=== PATIENT | male | born 2005 | race Hispanic/Latino ===

== ENCOUNTER 2025-01-24 20:53 | Emergency (ER) | payer SELFPAY ==
[2025-01-24 20:56] VITALS: BP 143/93
[2025-01-24 21:28] LABS: COVID-19 Antigen Negative (Negative)
[2025-01-24] MEDS: DECADRON 10 MG PO (22:35)
[2025-01-24] MEDS: DUONEB 3 ML INH (22:36)
[2025-01-24 22:38] VITALS: BP 115/68
--- NOTE | 2025-01-24 23:22 | ED.GENMED ---
History of Present Illness
General
Chief Complaint: Cough
Source: patient
Exam Limitations: none
Time Seen by Provider: 01/24/25 22:22
Nursing documentation reviewed up to this point in time: agreed with
History of Present Illness
History of Present Illness:
Patient to ED wt complaint of cough, SOB. Symptoms started a few days ago. Denies fever/chills Brought to ED by family for eval.
Past History
Past History
ED Past Medical History: Asthma
ED Past Surgical History: None
Review of Systems
Review of Systems
Allergies reviewed?: Yes
All Other Systems: ROS reviewed and negative except as documented in HPI and ROS
Constitutional: Reports no symptoms
EENT: Reports no symptoms
Respiratory: Reports cough and trouble breathing
Cardiac: Reports no symptoms
ABD/GI: Reports no symptoms
: Reports no symptoms
Musculoskeletal: Reports no symptoms
Skin: Reports no symptoms
Neurological: Reports no symptoms
Psychiatric: Reports no symptoms
Phy Exam
General Physical Exam
General Presentation: well appearing and no apparent distress
General age: appears stated age
General Skin: warm and dry
General Habitus: normal
General Mental: alert
Cardiovascular Exam
Cardiovascular Exam: regular rate/rhythm and no edema
Pulmonary Exam
Pulmonary Exam: chest non tender and generalized wheezing
Oxygen Status: room air
Cough: coarse cough
Musculoskeletal Exam
Musculoskeletal Exam: full ROM and neuro vasc intact
Skin Exam
Skin Exam: normal color, warm/dry and no rash
Psychiatric Exam
Psychiatric Exam: normal mood/affect
Course
Orders/Labs/Results
Orders:
Orders
01/24/25 20:59
CR Chest - 2 Views Urgent
Comment:
Reason For Exam: SOB
01/24/25 21:01
COVID-19 Antigen Urgent
Source: Nasal Swab
Influenza A+B Rapid Molecular Urgent
TAMI Source: Nasal Swab
Specimen Description:
01/24/25 22:26
Dexamethasone Pf [Decadron] 10 mg PO NOW STA
Ipratropium/Albuterol Sulfate [Duoneb] 3 ml INH R NOW STA
Vital Signs
Initial and Last Documented VS:
Initial Vital Signs
Temp Pulse Resp BP Pulse Ox
98.1 F 82 18 143/93 94
01/24/25 20:56 01/24/25 20:56 01/24/25 20:56 01/24/25 20:56 01/24/25 20:56
Last Documented Vital Signs
Temp Pulse Resp BP Pulse Ox
98.1 F 77 20 115/68 96
01/24/25 20:56 01/24/25 22:38 01/24/25 22:38 01/24/25 22:38 01/24/25 22:38
*Radiology
Radiology exam reviewed: radiology read reviewed
*Pulse Oximetry
Patient hypoxic: no
*Critical Care Note
Total Time (30-74mins, 75-104mins- exclusive of procedures): Not Applicable
Update Note
Update Note:
Patient to ED with complaint of cough and SOB. CXR neg for pneumonia. Generalized expiratory wheezing noted on exam. He was given 10mg decadron and duoneb in ED. WHeezing resolved. Pulse ox remains 98% RA. WIll discharge home with rx for
prednisone 40mg daily x 4 days, albutrol MDI prn. Given instructions on s/s to return to ED and he is agreeable to plan.
ED Attending Note
-
Portions of this chart may have been created with voice recognition software.� Occasional wrong word or��sound alike� substitutions may have occurred due to the inherent limitations of voice recognition software.
Discharge Plan
Departure
Patient Disposition: Home (Routine Discharge)
Date of Disposition: 01/24/25
Time of Disposition: 23:16
Patient with high blood pressure during this ER visit?: No
Condition: Good
Covid-19: Not Applicable
Discharge Problem:
Acute bronchitis
Instructions: Acute Bronchitis, Adult (DC)
Prescriptions:
New
prednisone 20 mg tablet
40 mg PO DAILY Qty: 8 0RF
albuterol sulfate 90 mcg/actuation HFA aerosol inhaler
2 puff inhalation Q4H PRN (Reason: shortness of breath or wheezing) Qty: 8.5 0RF
Referrals:
NONE,* [Family Provider] -
Activity Restrictions/Additional Instructions:
Return to the emergency department immediately for any changes in/worsening of your symptoms
Interventions
Interventions:
*Risk Screen - Suicide Last Done: 01/24/25 20:58
*General Assessment Last Done: 01/24/25 20:58
*Neglect/Abuse Screening Last Done: 01/24/25 20:58
*ED COVID-19 Vaccine History Last Done: 01/24/25 20:58
ED- Pulmonary Assessment Last Done: 01/24/25 22:39
Discharge Date and Time
Print Language: CAMBODIAN
== END 2025-01-24 23:43 | disposition home or self-care (01) ==
LOC: EMR 20:53
PROVIDERS: EMERGENCY PHYSICIAN Emergency Medicine
DX: J02.9 Acute pharyngitis, unspecified (principal); J45.909 Unspecified asthma, uncomplicated; Z11.52 Encounter for screening for COVID-19
CPT/HCPCS: 94640; 99284; 71046; 87502; 87811